=== PATIENT | female | born 1975 | race Caucasian/White ===

== ENCOUNTER 2017-08-29 03:12 | Observation (INO) ==
[2017-08-29] MEDS ORDERED: Nitroglycerin 1 INCH/GM PACKET TP ONE (03:20)
[2017-08-29] MEDS ORDERED: Aspirin 81 MG TAB.CHEW PO ONE (03:20)
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
[2017-08-29 03:36] LABS: Basophils # 0.1 K/mcL (0.0-0.2); Basophils % 0.5 %; Eosinophils # 0.2 K/mcL (0.0-0.6); Eosinophils % 1.1 %; Hematocrit 39.1 % (35.3-44.9); Hemoglobin 12.9 g/dL (11.5-15.4); Immature Granulocytes % 0.3 % (0-4); Lymphocytes # 3.2 K/mcL (0.6-4.6); Lymphocytes % 23.8 %; Mean Corpuscular Hemoglobin 27.4 pg (28.0-33.3); Mean Platelet Volume 11.1 fL (9.4-12.4); Monocytes # 0.7 K/mcL (0.0-1.3); Monocytes % 5.4 %; Neutrophils # 9.2 K/mcL (1.6-8.9); Platelet Count 259 K/mcL (140-400); Red Blood Count 4.71 M/mcL (3.82-4.97); Red Cell Distribution Width 15.1 % (11.5-14.5); Segmented Neutrophils % 68.9 %
[2017-08-29 03:42] LABS: INR 1.1; Prothrombin Time 11.7 Seconds (9.4-12.1)
[2017-08-29] MEDS ORDERED: *HR* Enoxaparin 100 MG/ML SYRINGE SQ STA (03:43)
[2017-08-29 03:45] LABS: Activated Partial Thrombo Time 30.4 Seconds (26.0-36.0)
[2017-08-29 03:54] LABS: BUN/Creatinine Ratio 14 (6-26); Blood Urea Nitrogen 10 mg/dL (6-20); Calcium 9.6 mg/dL (8.6-10.3); Carbon Dioxide 25 mEq/L (23-29); Chloride 105 mEq/L (98-107); Glucose 121 mg/dL (70-105); Osmolality,Calculated 286 (280-300); Potassium 3.3 mEq/L (3.5-5.1); Sodium 138 mEq/L (136-145); eGFR For Non-African Americans > 60 (> 60)
[2017-08-29] MEDS ORDERED: Naloxone 0.4 MG/ML INJ IVP PRN (04:32)
[2017-08-29] MEDS ORDERED: Nitroglycerin 1 INCH/GM PACKET TP SCH (06:00)
[2017-08-29 10:49] VITALS: BP 105/70
--- NOTE | 2017-08-29 12:10 | Internal Med History&Physical ---
Date of Encounter: 08/29/17 Time of Encounter: 11:35 Assessment and Plan (1) Chest pain Current visit: Yes Status: Acute Repeat cardiac enzymes were ordered through emergency room. Qualifiers: Chest pain type: precordial pain Qualified Code(s): R07.2 - Precordial pain (2) Hypokalemia Current visit: Yes Status: Acute Etiology is not obvious. She denies diuretic use or unusual vomiting or diarrhea. She will receive supplement potassium. Internal Medicine - H&P: HPI Chief complaint: Chest pain Admitted From: Emergency Dept Plans for Post Hospital Care: Home History of present illness: Ms. Moran is a 42 year old female who came to emergency room stating approximately 1 AM while going to bathroom she had some tightness in her chest. There was numbness in her left arm and jaw. She denies dyspnea or cough. Approximately 1 hour after onset she took a sublingual nitroglycerin which seemed to lessen the discomfort for 30 minutes. It began to worsen again so she took an additional nitroglycerin and came to emergency room. She was evaluated and admitted to [facility] floor for ongoing care needs. She states she has no residual discomfort now. She has not had previous similar discomfort at rest or with exertion. Her cardiovascular history is significant for hypertension. She has known ASHD status post OR October 2016 with 2 stents placed. She has not had a stress test or heart cath since then. Her last nitroglycerin pill taken before today was April 2017. She claims a diagnosis of CHF. Echocardiogram 11/16/2016 showed LVEF of 55%. There was reported mild LV diastolic dysfunction but E/A ratio was 1.0. There was no significant valvular abnormality reported. She denies DVT or pulmonary embolus. She does not get angina or angina equivalent on exertion. Past Med Surg Social Fam HX - Past Medical History Medical history: coronary artery disease, hyperlipidemia, hypertension, myocardial infarction Psychiatric history: no psych history - Past Surgical History Surgical History: angioplasty/stent - Social History Smoking Status: Current some day smoker Smokeless Tobacco Status: No Alcohol use: none Drug use: none - Family History Mother Living Status: Still Living Hx Family Cardiac Disorders: Yes Internal Medicine - H&P: Meds Aspirin 81 mg PO DAILY #30 tab.chew 11/18/16 [Rx] Atorvastatin [Lipitor] 80 mg PO HS #30 tablet 11/18/16 [Rx] Metoprolol [Lopressor] 25 mg PO BID #60 tablet 11/18/16 [Rx] Nitroglycerin 0.4 mg SL Q5-6MIN PRN #30 tab.subl 11/18/16 [Rx] Clopidogrel [Plavix] 75 mg PO DAILY 08/29/17 [History] 3 Allergy/AdvReac Type Severity Reaction Status Date / Time No Known Allergies Allergy Verified 11/16/16 12:21 All Systems PM: A 10-system review of systems was performed and is negative for pertinent findings except as documented above in the HPI. Review of systems: Gen.: She states her weight has been stable the past few months Cardiovascular: As per history of present illness Respiratory: She has smoked since age 15 up to 2 packs per day. She has not had PFTs and does not use home oxygen. She has not been tested for sleep apnea. GI: She has GERD. She has had cholecystectomy. She denies disorders of her liver or accident pancreas : She denies hematuria or dysuria or kidney stones Neurologic: She denies large distribution strokes or seizures. Endocrine: She is on Lipitor but is uncertain of her cholesterol status. She denies diabetes or thyroid disease Hematology/oncology: She denies blood disorders cancers or anemia Psychiatric: She has anxiety and depression but does not take medication Musculoskeletal: She denies arthritis or gout or other bone joint or muscle disorders. - Constitutional Vitals: Temp Pulse Resp BP Pulse Ox 98.4 F 77 18 105/70 98 08/29/17 10:46 08/29/17 10:46 08/29/17 10:46 08/29/17 10:46 08/29/17 10:46 Exam: Gen.: She is a well-developed well-nourished female resting comfortably in bed who appears in no acute distress. She denies pain or dyspnea HEENT: Head is atraumatic and normocephalic. Eyes: EOMI. There is no sclerae icterus. Mouth: Mucosa is moist. Neck: Supple and nontender. There is no thyromegaly or adenopathy noted. Heart: Regular without murmurs gallops or ectopics Chest: She is nontender in her chest wall to palpation. Lungs: No wheezes or crackles are heard. Abdomen: Soft and nontender. No masses or guarding are noted. Extremities: There is no cyanosis edema or clubbing noted. Dorsalis pedis and posttibial pulses are 1-2 over 2 bilaterally. Neurologic: Mental status: She is talkative and a good historian. Cranial nerves: Smile is symmetric. Forehead wrinkles bilaterally. Tongue protrudes midline. EOMI. Motor: There is no pronator drift. Cerebellar: Finger to nose is intact bilaterally. Skin: Warm and dry Internal Med - H&P Results - Labs CBC & Chem 7: 08/29/17 03:25 08/29/17 03:25 Labs: Cardiac Enzymes 08/29/17 Range/Units 08:15 Troponin I < 0.03 (< 0.04) ng/mL
--- NOTE | 2017-08-29 12:23 | Discharge Summary ---
Date of Encounter: 08/29/17 Time of Encounter: 11:35 - Discharge Diagnosis (1) Chest pain Priority: Primary Status: Resolved Qualifiers: Chest pain type: precordial pain Qualified Code(s): R07.2 - Precordial pain (2) Hypokalemia Priority: Secondary Status: Acute - Discharge Medications Prescriptions: Potassium Chloride 10 meq PO DAILY #10 tab.er.prt Home Medications: Aspirin 81 mg PO DAILY #30 tab.chew 11/18/16 [Rx] Atorvastatin [Lipitor] 80 mg PO HS #30 tablet 11/18/16 [Rx] Metoprolol [Lopressor] 25 mg PO BID #60 tablet 11/18/16 [Rx] Nitroglycerin 0.4 mg SL Q5-6MIN PRN #30 tab.subl 11/18/16 [Rx] Clopidogrel [Plavix] 75 mg PO DAILY 08/29/17 [History] Potassium Chloride 10 meq PO DAILY #10 tab.er.prt 08/29/17 [Rx] Allergies/Adverse Reactions: 3 Allergy/AdvReac Type Severity Reaction Status Date / Time No Known Allergies Allergy Verified 11/16/16 12:21 Date of admission: 08/29/17 04:18 Primary care physician: Christina Burk CNP - Patient Status Disposition: Home, Self-Care Condition: Fair Functional capacity at discharge: independent ambulation Overall status at discharge: patient is progressing back to baseline - Discharge Instructions Follow Up With: Christina Burk CNP [Primary Care Provider] - 1 week - Diet and Activity Activity: resume usual activities as tolerated Diet: advance to your usual diet Hospital course: Ms. Moran is a 42 year old female who came to emergency room stating approximately 1 AM while going to bathroom she had some tightness in her chest. There was numbness in her left arm and jaw. She denies dyspnea or cough. Approximately 1 hour after onset she took a sublingual nitroglycerin which seemed to lessen the discomfort for 30 minutes. It began to worsen again so she took an additional nitroglycerin and came to emergency room. She was evaluated and admitted to [facility] for ongoing care needs. Initial orders were written by the emergency room physician. I saw her on August 29 and performed the history physical and discharge. By the time I saw her she stated her pain had completely resolved and had not recurred. Pain could not be reproduced on sternal compression. I felt she was very low risk for DVT. The etiology of the pain was not determined with certainty. She wished to be discharged home which I felt was reasonable. She reported she had refills available for Nitrostat. Will continue Lopressor, aspirin and Plavix as at home. I encouraged her to become a nonsmoker. She was given 40 mEq of KCl prior to discharge and will be given a prescription for 10 days for 10 mEq daily. Her PCP can monitor labs as needed. She will follow with her PCP Christina Burk CNP within 1 week. - Time Spent with Patient Total time spent providing and/or coordinating discharge services: - Constitutional Vitals: Temp Pulse Resp BP Pulse Ox 98.4 F 77 18 105/70 98 08/29/17 10:46 08/29/17 10:46 08/29/17 10:46 08/29/17 10:46 08/29/17 10:46
--- NOTE | 2017-08-29 12:44 | Electrocardiograph Report ---
[address] [place], [place] [address] Test Date: 2017-08-29 Pat Name: Chacha Moran Department: [id number] Room: [facility] Gender: F Press Technician: Denys : 1975 Requested By: Wojciech Payne Order Number: [id number] Reading MD: Gabriella Alfonso Measurements Intervals [place] Rate: 119 P: 39 VA: 154 QRS: 20 QRSD: 89 T: -5 QT: 308 QTc: 379 Interpretive Statements SINUS TACHYCARDIA MINIMAL ST DEPRESSION ABNORMAL RHYTHM ECG Electronically Signed On 08-29-2017 12:43:07 EST by Gabriella Alfonso
[2017-08-30] MEDS ORDERED: Aspirin 81 MG TAB.CHEW PO SCH (09:00)
== END 2017-08-29 12:48 | disposition home or self-care (01) ==
LOC: EMEROOPIK 03:12 → INPPIK 03:12
PROVIDERS: ADMIT Internal Medicine; ATTEND Internal Medicine